=== PATIENT | female | born 1990 | race Caucasian/White ===

== ENCOUNTER → 2021-04-01 11:13 | Outpatient (BNVA) | payer OTHER, SELFPAY | PROVIDERS: Visit Provider Advanced Practice Midwife ==

== ENCOUNTER → 2021-04-05 14:53 | Outpatient (BNVA) | payer OTHER, SELFPAY | PROVIDERS: Visit Provider Advanced Practice Midwife | DX: Z30.432 Encounter for removal of intrauterine contraceptive device (principal); R22.42 Localized swelling, mass and lump, left lower limb | CPT/HCPCS: 58301 ==

== ENCOUNTER 2021-05-07 14:47 | Outpatient (REF) | payer OTHER, SELFPAY | END 2021-05-07 14:48 | disposition home or self-care (01) | LOC: HO.LAB 14:47 | PROVIDERS: Visit Provider Internal Medicine | DX: Z20.822 Contact with and (suspected) exposure to COVID-19 (principal) | CPT/HCPCS: C9803; U0003; U0005 ==

== ENCOUNTER 2021-09-10 14:44 | Outpatient (REF) | payer OTHER, SELFPAY ==
[2021-09-11 03:12] LABS: CT PCR NOT DETECTED (Not Detect.); NG PCR NOT DETECTED (Not Detect.)
[2021-09-14 02:02] LABS: HPV 16 RNA NOT DETECTED (NOT DETECTED); HPV mRNA E6/E7 rflx Detected (Not Detected)
== END 2021-09-10 14:45 | disposition home or self-care (01) ==
LOC: HO.LAB 14:44
PROVIDERS: Visit Provider Advanced Practice Midwife
DX: Z01.419 Encounter for gynecological examination (general) (routine) without abnormal findings (principal); Z11.51 Encounter for screening for human papillomavirus (HPV); Z20.2 Contact with and (suspected) exposure to infections with a predominantly sexual mode of transmission
CPT/HCPCS: 81025; 87491; 87591; 87624; 87625; 88142

== ENCOUNTER → 2021-12-04 08:14 | Outpatient (BNVA) | payer OTHER, SELFPAY | PROVIDERS: Visit Provider Obstetrics & Gynecology | DX: R87.610 Atypical squamous cells of undetermined significance on cytologic smear of cervix (ASC-US) (principal); R87.810 Cervical high risk human papillomavirus (HPV) DNA test positive; Z32.01 Encounter for pregnancy test, result positive | CPT/HCPCS: 99212 ==

== ENCOUNTER 2022-01-07 16:59 | Outpatient (REF) | payer OTHER, SELFPAY ==
[2022-01-07 18:00] LABS: Influenza A PCR NEGATIVE (Negative); Influenza B PCR NEGATIVE (Negative); Resp Syncy Virus RNA Qual PCR NEGATIVE (Negative); SARS COV2 PCR INHOUSE NEGATIVE (Negative)
== END 2022-01-07 17:00 | disposition home or self-care (01) ==
LOC: HO.LNP 16:59
PROVIDERS: Visit Provider Internal Medicine
DX: Z20.822 Contact with and (suspected) exposure to COVID-19 (principal); R43.9 Unspecified disturbances of smell and taste
CPT/HCPCS: 0241U

== ENCOUNTER 2023-10-13 07:39 | Outpatient (AMB) | payer OTHER, SELFPAY ==
[2023-10-13 07:43] VITALS: BP 118/80; BMI 34.2
--- NOTE | 2023-10-13 07:43 | MHC.PC.OV ---
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 PE Intake Note: New patient, PE request Hospital Education Coordinator Required: No Accompanied by: Self / Same As Patient Allergies No Known Allergies [No Known Allergies*] Allergy (Verified 10/13/23 08:02) Medication List - Last Reconciled 10/13/23 by Yue Jack MD No Known Home Meds Tobacco use date assessed: 10/13/23 Dental Screening Dental Screen Date: 10/13/23 Did you have a dental visit in the last 12 months?: No Did you have a dental problem in the last 6 months where you did not have access to dental care?: No Was dental information given to patient?: Patient has dentist HPI HPI Comments History of Present Illness Details This is a 33-year-old female with alcoholism and cocaine use disorder that comes today complaining of bilateral hand pain and left hand numbness of 4th and 5th finger that happens occasionally. She also has neck pain that has been bothering her for 11 days but has full active range of motion and denies any previous trauma to the area. She is obese with a BMI of 34.2 and was advised to diet and exercise. She drinks a pint of Vani 3 times a week and smokes cigarettes only when drinking. She was advised on cut down on drinking alcohol to 6 drinks per week at the most. She will be refer to addiction Medicine for alcoholism and cocaine use disorder. She also complains of changes in mood and gets upset easily. I did send a message to Quirino Thomas from Behavior[facility] to follow-up on her. Will start her on lamotrigine for her mood disorder. Even though she has a low PHQ-9 she was crying when she was telling me stories about boyfriend committing suicide and that she got hospitalized [place] [facility] [place] [facility] [place] because of this matter years ago. She also complains of restless legs at bedtime and I will start her on ropinirole. [facility] Surgical History (Updated 10/13/23 @ 08:07 by Yue Jack MD) H/O partial thyroidectomy Hx of section Family History (Updated 10/13/23 @ 08:10 by Yue Jack MD) Mother Fatty liver Benign tumor of heart Atrial myxoma Father Diabetes Family/Other Substance use disorder Mental health disorder Family/Other Neuroblastoma Social History (Updated 10/13/23 @ 09:12 by Yue Jack MD) Housing: House Alcohol intake: current Alcohol intake frequency: a few times a week Alcohol type: hard liquor and other Patient Tobacco Use Status: Current someday Tobacco user Tobacco use type: Cigarette Cigarettes Per Day: 5 e-Cigarette/Vaping Use: Never Used Second Hand Smoke Exposure: No Substance Use Type: Crack/Cocaine service: No Current occupational status: unemployed Current occupation: [employer] Sexual orientation: Straight/Heterosexual Gender identity: Female Cognitive needs: No Hearing needs: No Vision needs: No Questionnaire PHQ-9 Over the last 2 weeks, how often have you been bothered by any of the following problems? 1. Little interest or pleasure in doing things: not at all 2. Feeling down, depressed, or hopeless: more than half the days 3. Trouble falling or staying asleep, or sleeping too much: more than half the days 4. Feeling tired or having little energy: not at all 5. Poor appetite or overeating: more than half the days 6. Feeling bad about yourself - or that you are a failure or have let yourself or your family down: not at all 7. Trouble concentrating on things, such as reading the newspaper or watching television: not at all 8. Moving or speaking so slowly that other people could have noticed. Or the opposite - being so fidgety or restless that you have been moving around a lot more than usual: not at all 9. Thoughts that you would be better off or of hurting yourself in some way: not at all Total score: 6 Depression Screening Interpretation: Positive Depression Screening Follow-up: Existing condition and Follow-up Visit Requested Depression Screening Done: Yes [id number] - PHQ-9 Billing: Yes Source: Developed by Drs. Silvino Suarez, Maryan Rojas, Virgilio Snider and colleagues, with an educational suyapa from [employer]. AUDIT C Alcohol Use Questionnaire (AUDIT-C) 1. How often do you have a drink containing alcohol?: 2-3 times a week 2. How many drinks containing alcohol do you have on a typical day when you are drinking?: 10 or more 3. How often do you have six or more drinks on one occasion?: Weekly Total Score: 10 Score Reviewed/Action Taken: Yes (Patient was advise to cut down and was refer to addiction medicine) VEL-7 AMB Questionnaire VEL-7 Date VEL - 7 assessed: 10/13/23 Feeling nervous, anxious, or on edge: 3 = Nearly every day Not being able to stop or control worryin = Several days Worrying too much about different things: 3 = Nearly every day Trouble relaxin = Not at all Being so restless that it is hard to sit still: 0 = Not at all Becoming easily annoyed or irritable: 3 = Nearly every day Feeling afraid as if something awful might happen: 2 = More than half the days Total VEL-7 score (0-4 normal; 5-9 mild; 10-14 moderate; 15-21 severe): 12 Source: Developed by Drs. Silvino Suarez, Maryan Rojas, Virgilio Snider and colleagues, with an educational suyapa from [employer]. VEL-7 Assessment Billing VEL-7 Assessment Tool: VEL-7 Assessment 73002 Review of Systems Const All systems reviewed & are unremarkable except as noted in HPI and below ENT Reports neck pain Card Denies chest pain at rest, Denies chest pain with activity, Denies edema, Denies irregular heart rhythm, Denies claudication, Denies dyspnea, Denies dyspnea on exertion, Denies orthopnea, Denies paroxysmal nocturnal dyspnea and Denies slow heart rate Resp Denies cough, Denies dyspnea and Denies dyspnea on exertion GI Denies abdominal pain, Denies change in bowel habits, Denies excessive flatus, Denies nausea and Denies vomiting Denies urinary incontinence, Denies urinary hesitancy and Denies urinary urgency Musc Reports arthralgias, Reports muscle weakness, Reports neck pain and Reports numbness Neuro Reports numbness Psych Reports abnormal sleep pattern and Reports anxiety Physical exam (Primary Care) Vital Signs: Last Vital Signs BP 118/80 10/13/23 07:43 BMI result Body Mass Index 34.2 Tobacco/Smoking Status: Tobacco use Status Tobacco use date assessed 10/13/23 10/13/23 07:50 Patient Tobacco Use Status Current someday Tobacco 10/13/23 08:11 Tobacco use type Cigarette 10/13/23 08:11 e-Cigarette/Vaping Use Never Used 10/13/23 08:11 PHQ-9: PHQ-9 Score PHQ-9: Total score 2 10/13/23 08:23 Depression Screening Interpretation: Positive Depression Screening Follow-up: Existing condition and Follow-up Visit Requested Neck Neck: Yes normal visual inspection and Yes supple Resp Effort & Inspection: normal respiratory effort Auscultation: clear to auscultation bilaterally Cardio Jugular venous distension: no JVD Rate: regular rate Rhythm: regular rhythm Heart sounds: S1 normal heart sound present and S2 normal heart sound present Neuro General: no focal motor deficits Extrem General: Yes full ROM Psych Affect: Sad affect present Assessment and Plan Assessment & Plan (1) Alcoholism: Code(s): F10.20 - Alcohol dependence, uncomplicated Plan: Refer to addiction Medicine. Cut down to 6 drinks per week. (2) Restless leg syndrome: Code(s): G25.81 - Restless legs syndrome Plan: Start ropinirole at bedtime. (3) Cocaine use disorder: Code(s): F14.10 - Cocaine abuse, uncomplicated Plan: Referred to addiction Medicine. (4) Mood disorder: Code(s): F39 - Unspecified mood [affective] disorder Plan: Start lamotrigine. Referred to counseling. (5) Paresthesia: Code(s): R20.2 - Paresthesia of skin Plan: Nerve conduction study order. (6) Neck pain: Code(s): M54.2 - Cervicalgia Plan: X-ray of cervical spine ordered Orders: Orders XR cervical spine 2V Today M54.2 - Cervicalgia NE nerve conduction velocity Today R20.2 - Paresthesia of skin Thyroid Stimulating Hormone Today E66.9 - Obesity, unspecified Free T4 (Free Thyroxine) Today E66.9 - Obesity, unspecified Comprehensive [place]. Panel Fast Today E66.9 - Obesity, unspecified Lipid Panel Today E66.9 - Obesity, unspecified Vitamin B12 and Folate Today E53.8 - Deficiency of other specified B group vitamins, R20.2 - Paresthesia of skin Vitamin D 25-OH Total Today E55.9 - Vitamin D deficiency, unspecified Complete Blood Count Auto Diff Today E66.9 - Obesity, unspecified Referrals Addiction Medicine Referral F10.20 - Alcohol dependence, uncomplicated, F14.10 - Cocaine abuse, uncomplicated Counseling Referral F41.1 - Generalized anxiety disorder Medications: New ropinirole administer 1-3 hours before bedtime 0.5 mg PO BEDTIME 90 tabs 0RF 90 days G25.81 - Restless legs syndrome lamotrigine 25 mg PO DAILY 90 tabs 0RF 90 days F39 - Unspecified mood [affective] disorder sumatriptan succinate do not exceed 8 doses per 24 hrs 25 mg PO Q2-4H PRN 9 tabs 0RF migraine headache 30 days Coding Level of Care Code New Pt Level 4 (69588) Diagnoses Alcoholism F10.20 Restless leg syndrome G25.81 Cocaine use disorder F14.10 Mood disorder F39 Paresthesia R20.2 Neck pain M54.2 Additional Codes VEL-7 Assessment Billing - VEL-7 Assessment Tool: VEL-7 Assessment [id number] ([id number]) Time Spent (min) 30
== END 2023-10-13 08:33 | disposition home or self-care (01) ==
PROVIDERS: PCP Internal Medicine; Visit Provider Internal Medicine
DX: F10.20 Alcohol dependence, uncomplicated (principal); G25.81 Restless legs syndrome; F14.10 Cocaine abuse, uncomplicated; F39 Unspecified mood [affective] disorder; R20.2 Paresthesia of skin; M54.2 Cervicalgia
CPT/HCPCS: 99204

== ENCOUNTER 2023-10-19 09:17 | Outpatient (REF) | payer OTHER, SELFPAY ==
--- NOTE | ~2023-10-19 | XR_ITS ---
EXAMINATION: XR CERVICAL SPINE CLINICAL INFORMATION: Neck pain. COMPARISON: None available. TECHNIQUE: 3 views of the cervical spine were obtained. FINDINGS: Reversal of the normal cervical lordosis. Surgical clips in the anterior soft tissues on the right. Mild spondylosis with loss of disc space height at C4-C5 and C5-C6. XR/XR cervical spine 2V IMPRESSION: Mild spondylosis at C4-C5 and C5-C6.
[2023-10-19 10:29] LABS: MANUAL DIFF FLAG NO
[2023-10-19 10:38] LABS: Basophils Percent Auto 0.4 % (0-2); Eosinophils Absolute Auto 0.2 X10*3/uL (0.0-0.4); Eosinophils Percent Auto 1.8 % (0-4); Hematocrit 40.6 % (37.0-47.0); Hemoglobin 13.2 g/dl (12.0-16.0); Imm Gran Abs Auto 0.01 X10*3/uL (0.00-0.03); Imm Gran Pct Auto 0.1 % (0.0-0.4); Lymphocytes Absolute Auto 1.7 X10*3/uL (1.2-4.9); Mean Corpuscular HGB Conc 32.5 g/dl (31.0-35.0); Mean Corpuscular Hemoglobin 30.6 pg (27.0-33.0); Mean Corpuscular Volume 94.2 fL (80.0-98.0); Mean Platelet Volume 10.3 fL (9.4-12.3); Monocytes Absolute Auto 0.8 X10*3/uL (0.1-1.2); Neutrophils Absolute Auto 5.5 x10*3/uL (2.0-8.3); Neutrophils Percent Auto 66.7 % (45-73); Platelet Count 321 X10*3/uL (160-400); Red Blood Count 4.31 X10*6/uL (4.20-5.50); Red Cell Distribution Width 12.9 % (11.0-16.0); White Blood Count 8.2 X10*3/uL (4.8-10.8)
[2023-10-19 11:13] LABS: Alanine Aminotransferase 11 U/L (0-31); Alkaline Phosphatase 74 U/L (39-117); Anion Gap 12 (12-20); Aspartate Amino Transferase 16 U/L (5-31); Bilirubin Total 0.3 mg/dL (0.0-1.0); Blood Urea Nitrogen 14 mg/dL (9-16); Calcium 9.5 mg/dL (8.4-10.2); Carbon Dioxide 28 mmol/L (22-29); Chloride 104 mmol/L (96-108); Cholesterol 153 mg/dL (<200); Estimated Glomerular Filt Rate > 60; Glucose Fasting 93 mg/dL (60-99); HDL Cholesterol 57 mg/dL (>40); LDL Cholesterol Calculated 86 mg/dL (<100); Potassium 4.1 mmol/L (3.3-5.1); Sodium 140 mmol/L (135-145); Total Protein 7.3 g/dL (6.5-8.0); Triglycerides 53 mg/dL (<150)
[2023-10-19 11:16] LABS: Free T4 (Free Thyroxine) 0.92 ng/dL (0.71-1.85); Thyroid Stimulating Hormone 0.86 uIU/mL (0.32-4.0); Vitamin D 25-OH Total 21.9 ng/mL (>30)
[2023-10-19 11:31] LABS: Folate 5.3 ng/mL (> or = 4.0); Vitamin B12 400 pg/mL (200-900)
== END 2023-10-19 09:18 | disposition home or self-care (01) ==
LOC: HO.HMGCX 09:17
PROVIDERS: PCP Internal Medicine; Visit Provider Internal Medicine
DX: M54.2 Cervicalgia (principal); E66.9 Obesity, unspecified; E53.8 Deficiency of other specified B group vitamins; R20.2 Paresthesia of skin; E55.9 Vitamin D deficiency, unspecified
CPT/HCPCS: 36415; 72040; 80053; 80061; 82306; 82607; 82746; 84439; 84443; 85025